=== PATIENT | male | born 1975 | race Caucasian/White ===

== ENCOUNTER 2019-09-16 12:25 | Emergency (ER) | payer OTHER ==
[~2019-09-16] VITALS: Ht 177.8 cm; Wt 72.5 kg
--- NOTE | 2019-09-16 14:30 | NUR ---
pt to room from lobby, gait steady. cms remains intact to rt 4th digit.
[2019-09-16] MEDS ORDERED: IBUPROFEN 800 MG TABLET PO ONE (15:00)
--- NOTE | 2019-09-16 15:15 | NUR ---
REPORT TO PANCHO MILLS.
[2019-09-16] MEDS ORDERED: KETOROLAC 30 MG/1 ML ONE (15:25)
--- NOTE | 2019-09-16 15:25 | NUR ---
BEDSIDE REPORT AND CARE FROM JAKE RN. CARE ASSUMED TO MEDICATE PT PER ORDER FOR 7/10 FINGER PAIN AND APPLY SPLINT. VSS. CALL LIGHT IN REACH. FALL PRECAUTIONS IN PLACE.
[2019-09-16] MEDS ORDERED: KETOROLAC 30 MG/1 ML IM ONE (15:30)
[2019-09-16 15:40] VITALS: BP 140/79
== END 2019-09-16 15:47 | disposition home or self-care (01) ==
LOC: ED 15:35
DX: S63.294A Dislocation of distal interphalangeal joint of right ring finger, initial encounter (principal); W18.30XA Fall on same level, unspecified, initial encounter; Y93.89 Activity, other specified; Y92.828 Other wilderness area as the place of occurrence of the external cause; Y99.8 Other external cause status
CPT/HCPCS: 29130; 73140; 96372; 99283; J1885